=== PATIENT | male | born 1960 | race Caucasian/White ===

== ENCOUNTER 2019-06-22 03:32 | Inpatient (IN) | payer SELFPAY ==
[~2019-06-22] VITALS: Ht 157.5 cm; Wt 81.6 kg
[2019-06-22] MEDS ORDERED: SODIUM CHLORIDE 0.9% 1,000 ML IV ONE (03:50)
[2019-06-22 04:28] LABS: BASOPHILS % 0.7 % (0.0-2.0); EOSINOPHILS % 10.1 % (0.0-5.0); HEMATOCRIT. 34.2 % (42.0-52.0); HEMOGLOBIN. 11.6 g/dL (14.0-18.0); MEAN CORPUSCULAR HEMOGLOBIN 28.9 pg (28.0-32.0); MEAN CORPUSCULAR VOLUME 85.5 fL (80.0-94.0); MEAN PLATELET VOLUME 7.4 fl (7.4-10.4); MONOCYTES % 6.2 % (2.0-8.0); PLATELET 352 x1000/uL (130-400); RED CELL DISTRIBUTION WIDTH 13.8 % (11.6-14.6)
[2019-06-22 04:29] LABS: CHLORIDE 106 mEq/L (98-107)
[2019-06-22] MEDS ORDERED: ONDANSETRON HCL 4MG/2ML INJ IV ONE ×2 (04:30→06:00)
[2019-06-22] MEDS ORDERED: LORAZEPAM 2MG/ML CPJ IV ONE (06:00)
[2019-06-22] MEDS ORDERED: METOCLOPRAMIDE HCL 10MG/2ML VIAL IV ONE (06:00)
[2019-06-22 06:06] LABS: CLARITY URINE CLEAR (CLEAR); COLOR URINE YELLOW (YELLOW); KETONES URINE NEGATIVE (NEGATIVE); LEUKOCYTE ESTERASE URINE NEGATIVE (NEGATIVE); NITRITE URINE NEGATIVE (NEGATIVE); OCCULT BLOOD URINE NEGATIVE (NEGATIVE); PH URINE 6.5 (4.5-8.0); PROTEIN URINE NEGATIVE (NEGATIVE); SPECIFIC GRAVITY URINE 1.017 (1.005-1.030); UROBILINOGEN URINE 0.2 E.U./dL (0.2-1.0)
[2019-06-22] MEDS ORDERED: FAMOTIDINE 20MG/2ML VIAL IV ONE (06:30)
[2019-06-22 09:07] VITALS: BP 121/56
[2019-06-22] MEDS ORDERED: DEXTROSE 50% WATER 50ML SYRINGE IV PRN (09:45)
[2019-06-22] MEDS ORDERED: MAGNESIUM/ALUMINUM HYDROXIDE/SIMETHICONE 30ML UDC PO PRN (09:45)
[2019-06-22] MEDS ORDERED: ONDANSETRON HCL 4MG/2ML INJ IV PRN (09:45)
[2019-06-22] MEDS ORDERED: ACETAMINOPHEN 325MG TABLET PO PRN (09:45)
[2019-06-22] MEDS ORDERED: CLONIDINE 0.1MG TABLET PO PRN (09:45)
[2019-06-22] MEDS ORDERED: DIPHENHYDRAMINE 50MG/ML VIAL IV PRN (09:45)
[2019-06-22] MEDS ORDERED: POTASSIUM CHLORIDE 20MEQ TABLET SR PO SCH (10:00)
[2019-06-22] MEDS ORDERED: MAGN400C MT (10:47)
[2019-06-22] MEDS: SODIUM CHLORIDE 0.9% 1,000 ML IV SCH ×2 (11:25→20:39)
[2019-06-22 12:39] VITALS: BP_SYST 110; BP_SYST 120; BP_SYST 123; BP_DIAS 60; BP_DIAS 61; BP_DIAS 62
[2019-06-22] MEDS: BLOOD SUGAR DIAGNOSTIC STRIP TEST SCH ×3 (13:31→20:39)
[2019-06-22] MEDS: INSULIN LISPRO 100 UNITS/ML SUBCUT SCH ×3 (13:44→20:35)
[2019-06-22 15:38] VITALS: BP 123/65
[2019-06-22] MEDS: PHENYLEPHRINE/SHK LV/MO/PET,WH RECTAL OINT 28GM PR SCH (18:17)
[2019-06-22] MEDS ORDERED: PANTOPRAZOLE SODIUM 40 MG/VIAL IV SCH (18:45)
[2019-06-22 19:43] LABS: HEMATOCRIT 30.4 % (42.0-52.0); HEMOGLOBIN 10.4 g/dL (14.0-18.0); MEAN CORPUSCULAR HEMOGLOBIN 29.1 pg (28.0-32.0); MEAN CORPUSCULAR VOLUME 85.4 fL (80.0-94.0); PLATELET 325 x1000/uL (130-400); RED BLOOD CELL COUNT 3.56 mill/uL (4.7-6.1); RED CELL DISTRIBUTION WIDTH 14.1 % (11.6-14.6)
[2019-06-22 20:00] VITALS: BP 138/96
[2019-06-22 20:02] LABS: T4 FREE 0.88 ng/dL (0.76-1.46)
[2019-06-22] MEDS: PANTOPRAZOLE SODIUM 40 MG/VIAL IV SCH (20:33)
[2019-06-23] VITALS: BP 130/75
[2019-06-23] MEDS: PHENYLEPHRINE/SHK LV/MO/PET,WH RECTAL OINT 28GM PR SCH ×4 (00:29→18:19)
[2019-06-23 04:00] VITALS: BP_SYST 133; BP_SYST 137; BP_SYST 144; BP_DIAS 75; BP_DIAS 77; BP_DIAS 80
[2019-06-23] MEDS: SODIUM CHLORIDE 0.9% 1,000 ML IV SCH ×2 (05:48→18:21)
[2019-06-23 07:28] LABS: HEMATOCRIT. 28.4 % (42.0-52.0); HEMOGLOBIN. 9.8 g/dL (14.0-18.0); MEAN CORPUSCULAR HEMOGLOBIN 29.4 pg (28.0-32.0); MEAN PLATELET VOLUME 7.6 fl (7.4-10.4); PLATELET 292 x1000/uL (130-400); RED BLOOD CELL COUNT 3.34 mill/uL (4.7-6.1)
[2019-06-23 07:35] LABS: CHLORIDE 111 mEq/L (98-107)
[2019-06-23] MEDS: BLOOD SUGAR DIAGNOSTIC STRIP TEST SCH ×4 (07:40→20:19)
[2019-06-23 07:45] LABS: PHOSPHORUS 2.5 mg/dL (2.5-4.9)
[2019-06-23 08:00] VITALS: BP 123/69
[2019-06-23] MEDS ORDERED: PNEUMOCOCCAL 23-VAL P-SAC VAC 0.5 ML IM ONE (08:00)
[2019-06-23] MEDS: INSULIN LISPRO 100 UNITS/ML SUBCUT SCH ×4 (08:10→20:48)
[2019-06-23] MEDS: PANTOPRAZOLE SODIUM 40 MG/VIAL IV SCH (09:23)
[2019-06-23] MEDS ORDERED: INFLUENZA VIRUS VACCINE(AFLURIA) 0.5ML SYR IM ONE (10:00)
[2019-06-23] MEDS ORDERED: ATENOLOL 25MG TABLET PO SCH (12:00)
[2019-06-23 13:45] LABS: PLATELET ESTIMATE NORMAL
[2019-06-23 16:00] VITALS: BP_SYST 130; BP_SYST 136; BP_SYST 140; BP_DIAS 69; BP_DIAS 72; BP_DIAS 80
[2019-06-23 20:00] VITALS: BP 151/82
[2019-06-24] VITALS: BP 122/67
[2019-06-24] MEDS: SODIUM CHLORIDE 0.9% 1,000 ML IV SCH ×3 (01:05→22:10)
[2019-06-24] MEDS: PHENYLEPHRINE/SHK LV/MO/PET,WH RECTAL OINT 28GM PR SCH ×5 (01:06→23:18)
[2019-06-24 07:10] LABS: CHLORIDE 107 mEq/L (98-107)
[2019-06-24 07:22] LABS: HEMATOCRIT. 29.5 % (42.0-52.0); HEMOGLOBIN. 10.2 g/dL (14.0-18.0); MEAN CORPUSCULAR HEMOGLOBIN 29.4 pg (28.0-32.0); MEAN CORPUSCULAR VOLUME 84.8 fL (80.0-94.0); MEAN PLATELET VOLUME 7.6 fl (7.4-10.4); PLATELET 327 x1000/uL (130-400); RED BLOOD CELL COUNT 3.48 mill/uL (4.7-6.1); RED CELL DISTRIBUTION WIDTH 14.2 % (11.6-14.6)
[2019-06-24] MEDS: BLOOD SUGAR DIAGNOSTIC STRIP TEST SCH ×4 (07:40→21:00)
[2019-06-24 08:00] VITALS: BP 110/54
[2019-06-24] MEDS: INSULIN LISPRO 100 UNITS/ML SUBCUT SCH ×4 (08:10→22:09)
[2019-06-24] MEDS: PANTOPRAZOLE SODIUM 40 MG/VIAL IV SCH (08:52)
[2019-06-24 12:00] VITALS: BP 137/72
[2019-06-24 12:42] LABS: PLATELET ESTIMATE NORMAL
[2019-06-24 15:41] VITALS: BP 118/55
[2019-06-24] MEDS: ATENOLOL 25MG TABLET PO SCH (16:51)
[2019-06-24 20:00] VITALS: BP 134/69
[2019-06-25] VITALS: BP_SYST 132; BP_SYST 135; BP_SYST 139; BP_DIAS 57; BP_DIAS 62; BP_DIAS 67
[2019-06-25 04:00] VITALS: BP 131/73
[2019-06-25] MEDS: PHENYLEPHRINE/SHK LV/MO/PET,WH RECTAL OINT 28GM PR SCH (05:44)
[2019-06-25 06:08] LABS: HEMATOCRIT. 30.7 % (42.0-52.0); HEMOGLOBIN. 10.5 g/dL (14.0-18.0); MEAN CORPUSCULAR VOLUME 84.9 fL (80.0-94.0); MEAN PLATELET VOLUME 7.4 fl (7.4-10.4); PLATELET 354 x1000/uL (130-400); RED BLOOD CELL COUNT 3.62 mill/uL (4.7-6.1); RED CELL DISTRIBUTION WIDTH 14.1 % (11.6-14.6)
[2019-06-25 06:12] LABS: CHLORIDE 109 mEq/L (98-107)
[2019-06-25 06:18] LABS: PHOSPHORUS 4.2 mg/dL (2.5-4.9)
[2019-06-25] MEDS: BLOOD SUGAR DIAGNOSTIC STRIP TEST SCH ×2 (07:40→12:40)
[2019-06-25] MEDS: INSULIN LISPRO 100 UNITS/ML SUBCUT SCH ×2 (08:10→14:03)
[2019-06-25] MEDS: PANTOPRAZOLE SODIUM 40 MG/VIAL IV SCH (10:33)
[2019-06-25] MEDS: ATENOLOL 25MG TABLET PO SCH (10:34)
[2019-06-25] MEDS: SODIUM CHLORIDE 0.9% 1,000 ML IV SCH (10:35)
[2019-06-25 11:18] LABS: NUCLEATED RED BLOOD CELLS 1 /100 WBC; PLATELET ESTIMATE NORMAL
[2019-06-25 16:42] VITALS: BP 123/68
[2019-06-26 17:06] LABS: OVA & PARASITE EXAM Final report (.)
== END 2019-06-25 17:05 | disposition home or self-care (01) | DRG 48 ==
LOC: ER 05:27 → 7WST 05:49 → ENRESERV 07:56
PROVIDERS: ADMIT Internal Medicine; ATTEND Internal Medicine
DX: G90.8 Other disorders of autonomic nervous system (principal); D72.1 Eosinophilia; R00.0 Tachycardia, unspecified; E11.65 Type 2 diabetes mellitus with hyperglycemia; E88.09 Other disorders of plasma-protein metabolism, not elsewhere classified; D64.9 Anemia, unspecified; E87.6 Hypokalemia; I10 Essential (primary) hypertension; K64.9 Unspecified hemorrhoids; R19.7 Diarrhea, unspecified; R11.2 Nausea with vomiting, unspecified; Z83.3 Family history of diabetes mellitus
CPT/HCPCS: 36415; 71045; 74021; 80048; 81003; 82270; 82962; 83036; 83735; 83880; 84100; 84439; 84443; 84484; 85027; 85379; 87015; 87045; 87177; 87209; 87427; 87449; 87493; 89055; 90686; 90732; 93005; 93306; 93970; 96361; 96374; 96375; 96376; 99285; C9113; J1815; J2060; J2405; J2765; J3490; J7030